=== PATIENT | male | born 1950 | race Two or more races ===

== ENCOUNTER 2018-08-08 07:25 | Day surgery (SDC) | payer OTHER ==
[2018-08-08] MEDS ORDERED: COLACE100 MG PO (11:33)
[2018-08-08] MEDS ORDERED: PERCOCET 5-3251 EACH PO (11:33)
== END 2018-08-08 17:25 | disposition home or self-care (01) ==
LOC: CIR.AMB 07:25
DX: K64.8 Other hemorrhoids (principal)